=== PATIENT | male | born 1960 | race Caucasian/White ===

== ENCOUNTER 2023-01-06 09:38 | Outpatient (CLI) | payer BC | END 2023-01-06 09:39 | disposition home or self-care (01) | LOC: CSHRAD 09:38 | PROVIDERS: ATTEND Urology | DX: Z01.818 Encounter for other preprocedural examination (principal); Z95.0 Presence of cardiac pacemaker | CPT/HCPCS: 71046 ==

== ENCOUNTER 2023-01-08 08:15 | Outpatient (CLI) | payer BC ==
[2023-01-08] MEDS ORDERED: Magnevist 469MG/ML 20 ML VIAL ONE (12:24)
== END 2023-01-08 08:16 | disposition home or self-care (01) ==
LOC: CSHSPEC 08:15
PROVIDERS: ATTEND Urology
DX: C61 Malignant neoplasm of prostate (principal)
CPT/HCPCS: 72197; 82565; A9579